=== PATIENT | male | born 1955 | race Caucasian/White ===

== ENCOUNTER 2020-05-05 16:23 | Emergency (ER) | payer MEDICARE, OTHER, SELFPAY ==
--- NOTE | ~2020-05-05 | XR_ITS ---
XR chest 2V DATE: 05/05/2020 16:59 INDICATION: Right-sided chest pain radiating to back. History of hypertension. TECHNIQUE: PA and lateral views COMPARISON: 05/09/2015 2 view chest FINDINGS: Normal heart size. No hilar or mediastinal enlargement. No pulmonary infiltrate or consolid ation, pleural effusion or pulmonary vascular congestion or pneumothorax. IMPRESSION: No active cardiopulmonary disease Reviewed, dictated and finalized at location A.
[2020-05-05 16:26] VITALS: BP 151/98; PULSE 97; RESP 18; TEMP 36.9; O2SAT 96
--- NOTE | 2020-05-05 16:34 | ECG_ITS ---
Measurements Intervals [place] Rate: 89 P: 60 OR: 160 QRS: -41 QRSD: 102 T: 34 QT: 346 QTc: 421 Interpretive Statements SINUS RHYTHM LEFT AXIS DEVIATION DELAYED PRECORDIAL R/S TRANSITION BASELINE ARTIFACT- I, II, III, AVR, AVL, AVF, V5 BORDERLINE ECG Electronically Signed On 05-05-2020 20:14:17 CDT by Charan Phan D.O.
[2020-05-05 16:45] LABS: Basophils Absolute Auto 0.1 K/mm3 (0.0-0.1); Basophils Percent Auto 1.1 % (0.2-1.2); Eosinophils Absolute Auto 0.1 K/mm3 (0-0.3); Eosinophils Percent Auto 1.5 % (0-4.4); Hematocrit 45.3 % (42.0-52.0); Hemoglobin 15.8 g/dL (14.0-18.0); Immature Granulocyte Absolute 0.02 K/mm3 (0.00-0.031); Immature Granulocyte Percent A 0.3 % (0-0.5); Lymphocytes Absolute Auto 1.27 K/mm3 (0.9-3.2); Lymphocytes Percent Auto 17.1 % (18.3-44.2); Mean Corpuscular HGB Conc 34.9 g/dl (32-36); Mean Corpuscular Hemoglobin 32.9 pg (26-34); Mean Corpuscular Volume 94.4 fl (80-100); Monocytes Absolute Auto 0.8 K/mm3 (0.1-0.6); Monocytes Percent Auto 10.5 % (2.6-8.5); Neutrophils Absolute Auto 5.2 K/mm3 (1.3-6.7); Neutrophils Percent Auto 69.5 % (45.5-73.1); Platelet Count Result 230 k/mm3 (150-375); White Blood Count 7.4 K/mm3 (4.5-10.0)
--- NOTE | 2020-05-05 16:46 | ED.WEAKNESS ---
HPI - Weakness General Chief complaint: Weakness Stated complaint: chest pain Time Seen by Provider: 05/05/20 16:31 Source: patient Mode of arrival: ambulatory Limitations: no limitations History of Present Illness HPI Narrative: This is a 64 year old male that presents to the ER for chest pain x 1 week. Reports it started more in his back. Reports over the last 2 days it has started to be more in his chest. Reports current mild discomfort on the right side of the chest. Reports generalized weakness. Reports he has been getting short of breath with exertion. Reports a mild cough. Denies fever. Related Data Home Medications Medication Instructions Recorded Confirmed amlodipine 05/05/20 buspirone mg 05/05/20 ergocalciferol (vitamin D2) 05/05/20 finasteride mg 05/05/20 tamsulosin mg PO 05/05/20 Allergies Allergy/AdvReac Type Severity Reaction Status Date / Time No Known Allergies Allergy Mild Verified 05/05/20 16:30 Review of Systems Review of Systems: Narrative: CONSTITUTIONAL: Denies fever CARDIOVASCULAR: Reports chest pain. Denies edema RESPIRATORY: Reports dyspnea. Denies cough NEUROLOGIC: Reports weakness. All systems reviewed & are unremarkable except as noted in HPI and below PMFSH Past Medical History Medical History (Updated 05/05/20 @ 20:15 by Flory Peralta PA-C) History of BPH History of hypertension Surgical History Surgical History (Updated 05/05/20 @ 16:50 by Flory Peralta PA-C) History of total hip arthroplasty Social History Social History (Updated 05/05/20 @ 16:50 by Flory Peralta PA-C) Smoking status: Never smoker Exam Narrative: Exam Narrative: GENERAL: Well-appearing, well-nourished, and in no acute distress. HEAD: Normocephalic, atraumatic. EYES: EOMI. ENT: Nares clear, no rhinorrhea or epistaxis. Mucous membranes moist. Oropharynx without tonsillar hypertrophy exudate or other lesions. Bilateral TMs pearly eid non-bulging NECK: Supple. No adenopathy or masses. No carotid bruits or JVD CHEST: Clear to auscultation. No respiratory distress. No wheezes rales or rhonchi HEART: Regular rate and rhythm. No murmur heard. Normal peripheral pulses. EXTREMITIES: Normal range of motion. No edema. Strength equal in bilateral upper and lower extremities (5/5) SKIN: Warm, dry, no rash. NEURO: No focal deficits. Alert and oriented x3. CN II-XII grossly intact. PSYCH: Normal mood and affect Course Vital Signs Vital signs: Vital Signs Temperature 98.4 F 05/05/20 16:26 Pulse Rate 97 05/05/20 16:26 Respiratory Rate 18 05/05/20 16:26 Blood Pressure 151/98 H 05/05/20 16:26 Pulse Oximetry 96 05/05/20 16:26 Temperature 98.4 F 05/05/20 16:26 Pulse Rate 95 05/05/20 20:02 Respiratory Rate 22 H 05/05/20 20:02 Blood Pressure 146/93 H 05/05/20 19:39 Pulse Oximetry 97 05/05/20 20:02 MDM - Weakness MDM Narrative Medical decision making narrative: Patient presents to the emergency department for intermittent chest pain, shortness of breath and weakness for the last week. Patient is afebrile and nontoxic-appearing. Vitals are stable. CBC is without acute changes. Metabolic panel without concerning findings. CRP is normal. BNP is not elevated. Chest x-ray without concerning changes. EKG without acute changes. Baseline and 3-hour troponin are negative. UA without concern for urinary tract infection. Heart score is 3. Patient updated on case findings. Has appointment to follow-up with his primary on Friday. He was instructed to follow-up as scheduled. He was given warnings to return to the ER Lab Data Attestation: I reviewed the patient's lab results. Result diagrams: 05/05/20 16:38 05/05/20 16:38 Labs: Lab Results 05/05/20 05/05/20 05/05/20 Range/Units 16:38 16:38 16:38 WBC 7.4 (4.5-10.0) K/mm3 RBC 4.80 (4.6-6.20) M/mm3 Hgb 15.8 (14.0-18.0) g/dL Hct 45.3 (42.0-52.0) % MCV 94.4
[2020-05-05 16:56] LABS: Prothrombin Time 12.7 Seconds (11.1-14.7)
[2020-05-05 16:57] LABS: Partial Thromboplastin Time 24.7 SECONDS (22.3-36.8)
[2020-05-05 16:59] LABS: Alanine Aminotransferase 24 U/L (4-50); Albumin Level 4.3 g/dL (3.5-5.1); Alkaline Phosphatase 102 U/L (38-126); Aspartate Amino Transferase 31 U/L (17-59); Bilirubin,Total 0.3 mg/dL (0.2-1.3); Blood Urea Nitrogen 16 mg/dL (9-20); CRP < 0.5 mg/dL (<1.0); Carbon Dioxide 27 mmol/L (22-30); Chloride 102 mmol/L (98-107); D Dimer 0.35 ug/mL (<0.48); Estimated CRCL calculation 98 ml/min; Estimated Glomerular Filt Rate > 60; Glucose 110 mg/dL (75-110); Sodium 136 mmol/L (137-145)
[2020-05-05] MEDS: ASPIRIN 81 MG CHEWABLE TABLET 324 MG PO (16:59)
[2020-05-05 17:08] LABS: NT Pro B Type Natriuretic Pept 94 PG/ML (5-100); Troponin I < 0.012 ng/mL (0.000-0.034)
[2020-05-05 18:21] VITALS: BP 144/94; PULSE 89; RESP 22; O2SAT 94
[2020-05-05 18:31] LABS: Add Urine Microscopic? NO; Appearance Urine Clear (Clear); Bilirubin Urine Negative (Negative); Blood Urine Negative (Negative); Color Urine Yellow (Yellow); Glucose Urine UA Negative (Negative); Ketones Urine Negative (Negative); Leukocyte Esterase Ur Negative LEU/UL (Negative); Nitrate Urine Negative (Negative); Protein Urine Negative (Negative); Specific Grav Ur 1.025 (1.001-1.035); Urobilinogen Urine Negative mg/dL (<2.0)
[2020-05-05 19:39] VITALS: BP 146/93; PULSE 86; RESP 21; O2SAT 98
[2020-05-05 19:56] LABS: Troponin I < 0.012 ng/mL (0.000-0.034)
[2020-05-05 20:02] VITALS: PULSE 95; RESP 22; O2SAT 97
== END 2020-05-05 20:29 | disposition home or self-care (01) ==
PROVIDERS: Physician Assistant; Emergency Provider Family Medicine; PCP Internal Medicine Geriatric Medicine
DX: R07.9 Chest pain, unspecified (principal); R06.02 Shortness of breath; N40.0 Benign prostatic hyperplasia without lower urinary tract symptoms; I10 Essential (primary) hypertension; R94.31 Abnormal electrocardiogram [ECG] [EKG]
CPT/HCPCS: 36415; 71046; 80053; 81003; 83880; 84484; 85025; 85380; 85610; 85730; 86140; 93005; 99284; A9270

== ENCOUNTER 2021-06-08 09:37 | Outpatient (CLI) | payer MEDICARE, OTHER, SELFPAY ==
--- NOTE | ~2021-06-08 | XR_ITS ---
EXAMINATION: XR ankle RT min 3V INDICATION: Right ankle pain TECHNIQUE: Four views of the right ankle are obtained. COMPARISON: None available FINDINGS: There is no fracture, dislocation, or subluxation. Mild osteoarthritis is noted. There is c alcified atherosclerosis. A plantar calcaneal enthesophyte is noted. 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 IMPRESSION: 1. No acute osseous abnormality. Reviewed, dictated and finalized at location A.
== END 2021-06-08 09:38 | disposition home or self-care (01) ==
PROVIDERS: PCP Internal Medicine Geriatric Medicine; Visit Provider Internal Medicine Geriatric Medicine
DX: M19.071 Primary osteoarthritis, right ankle and foot (principal)
CPT/HCPCS: 73610

== ENCOUNTER 2021-07-28 13:56 | Emergency (ER) | payer MEDICARE, OTHER, SELFPAY ==
[2021-07-28 14:07] VITALS: BP 123/93; PULSE 91; RESP 18; TEMP 36.3; O2SAT 98
--- NOTE | 2021-07-28 14:31 | ED.URI ---
HPI - URI/Sore Throat General Chief Complaint: Upper Respiratory Infection Stated Complaint: Congestion Time Seen by Provider: 07/28/21 14:31 Source: patient Mode of arrival: ambulatory Limitations: no limitations History of Present Illness HPI Narrative: Arie Dexter is a 65 yo male with high blood pressure and prostate problems [facility] complaints of 12 days of sinus gesturing that is gradually improving but his hearing and the ongoing congestion is aggravating him. He has no fever he has no nausea no vomiting Related Data Home Medications Medication Instructions Recorded Confirmed amlodipine 10 mg PO DAILY 05/05/20 07/28/21 buspirone 15 mg PO DAILY 05/05/20 07/28/21 ergocalciferol (vitamin D2) 1,250 mcg PO DAILY 05/05/20 07/28/21 finasteride 5 mg PO DAILY 05/05/20 07/28/21 tamsulosin 0.4 mg PO DAILY 05/05/20 07/28/21 diclofenac sodium 75 mg PO DAILY 07/28/21 07/28/21 Allergies Allergy/AdvReac Type Severity Reaction Status Date / Time No Known Allergies Allergy Mild Verified 07/28/21 14:12 Review of Systems Review of Systems: CONSTITUTIONAL: Denies fever, chills, sweats. EYES: Denies visual changes, redness, discharge. ENT: Has rhinorrhea, has congestion, sore throat, otalgia. CARDIOVASCULAR: Denies chest pain, palpitations, edema. RESPIRATORY: Denies dyspnea, wheezing, cough GASTROINTESTINAL: Denies abdominal pain, nausea, vomiting, diarrhea. GENITOURINARY: Denies dysuria, hematuria, abnormal discharge SKIN: Denies rash or itching. NEUROLOGIC: Denies numbness, or focal weakness. PSYCHIATRIC: Denies anxiety or depression. [facility] Past Medical History Medical History History of BPH History of hypertension Surgical History Surgical History History of total hip arthroplasty Social History Social History (Updated 07/28/21 @ 14:42 by Felecia Ramírez CNP) Smoking status: Never smoker Alcohol intake: never Comments At time of signature, I agree with nursing past medical, surgical, social and family history. There is no relevant family history pertinent to the presenting complaint. Exam Narrative: GENERAL: This is a well-nourished, well-developed patient, in mild distress. HEAD: normocephalic, atraumatic. EYES: Sclera clear/white. Vision is grossly intact. EARS: External ears normal, auditory canals clear and without drainage, TMs normal without perforation. Hearing grossly intact. NOSE: External nose normal without nasal discharge, nares without redness, no rhinorrhea. THROAT: Mucous membranes moist, posterior pharynx mild erythema NECK: Neck supple, non-tender CARDIOVASCULAR: Regular rate and rhythm without murmurs, gallops, or rubs. RESPIRATORY: Clear to auscultation. Breath sounds equal bilaterally. No wheezes, rales, or rhonchi. GASTROINTESTINAL: Abdomen soft, non-tender, SKIN: warm, intact with no suspicious lesions or rash, good texture and turgor. NEURO: awake, alert, and oriented to person, place and time. There were no obvious focal neurologic abnormalities. Steady gait EXTREMITIES: Normal range of motion. BACK: Nontender without deformity Course Course Emergency Course: Patient comes with 12 days of sinus symptoms and while they are improving his hearing is not improving greatly Started on prednisone 40 mg x 5 days and Zyrtec each a.m. Vital Signs Vital signs: Vital Signs Temperature 97.4 F L 07/28/21 14:07 Pulse Rate 91 07/28/21 14:07 Respiratory Rate 18 07/28/21 14:07 Blood Pressure 123/93 H 07/28/21 14:07 Pulse Oximetry 98 07/28/21 14:07 Temperature 97.4 F L 07/28/21 14:07 Pulse Rate 91 07/28/21 14:07 Respiratory Rate 18 07/28/21 14:07 Blood Pressure 123/93 H 07/28/21 14:07 Pulse Oximetry 98 07/28/21 14:07 MDM - URI/Sore Throat Differential Diagnosis Differential diagnosis: Likely upper respiratory infecti
== END 2021-07-28 14:54 | disposition home or self-care (01) ==
PROVIDERS: Emergency Provider Nurse Practitioner
DX: J01.10 Acute frontal sinusitis, unspecified (principal)
CPT/HCPCS: 99213; G0463

== ENCOUNTER 2022-08-10 15:45 | Emergency (ER) | payer MEDICARE, OTHER, SELFPAY ==
[2022-08-10 15:56] VITALS: BP 132/86; PULSE 99; RESP 16; TEMP 36.7; O2SAT 97
[2022-08-10 15:58] VITALS: BP 132/86; PULSE 99; RESP 16; TEMP 36.7; O2SAT 97
--- NOTE | 2022-08-10 16:31 | ED.GENADULT ---
HPI - General Adult General Chief complaint: Ear Stated complaint: ear inf Source: patient Mode of arrival: ambulatory Limitations: no limitations History of Present Illness HPI narrative: Patient presents for evaluation of right ear pain for the last 2 days. He states he is hard of hearing at baseline. Reports of 2 days. Reports some pain in the right TMJ but denies dental pain. He states he had similar symptoms in the past and was given an eardrop to use. He denies any fever, chills, sore throat, respiratory symptoms. No recent sick contacts to his knowledge. He has not been swimming recently. No additional complaints or concerns Related Data Home Medications Medication Instructions Recorded Confirmed amlodipine 10 mg tablet 10 mg PO DAILY 05/05/20 08/10/22 buspirone 15 mg tablet 15 mg PO DAILY 05/05/20 08/10/22 ergocalciferol (vitamin D2) 1,250 1,250 mcg PO DAILY 05/05/20 08/10/22 mcg (50,000 unit) capsule finasteride 5 mg tablet 5 mg PO DAILY 05/05/20 08/10/22 tamsulosin 0.4 mg capsule 0.4 mg PO DAILY 05/05/20 08/10/22 diclofenac sodium 75 mg 75 mg PO DAILY 07/28/21 08/10/22 tablet,delayed release Allergies Allergy/AdvReac Type Severity Reaction Status Date / Time No Known Allergies Allergy Mild Verified 08/10/22 15:57 Review of Systems Review of Systems: CONSTITUTIONAL: Denies fever, chills, or sweats. EYES: Denies visual changes, redness, or discharge. ENT: Reports right ear pain and decreased hearing from his baseline. Denies any drainage from the ear. Denies sore throat. CARDIOVASCULAR: Denies chest pain, palpitations, or edema. RESPIRATORY: Denies cough or dyspnea. GASTROINTESTINAL: Denies abdominal pain, nausea, vomiting, or diarrhea. GENITOURINARY: Denies dysuria or hematuria. SKIN: Denies rash or itching. MUSCULOSKELETAL: Denies back pain, joint pain, or myalgia. NEUROLOGIC: Denies headache, numbness, dizziness, or weakness. PSYCHIATRIC: Denies anxiety or depression. [facility] Past Medical History Medical History History of BPH History of hypertension Surgical History Surgical History History of total hip arthroplasty Family History Family History Mother Family history non-contributory Social History Social History Smoking status: Never smoker Alcohol intake: current Alcohol use details: Social Substance use: never Living arrangements: with family Gender identity (if verbalized by the patient): Male Sexual Orientation (if Verbalized by the Patient): Straight or Heterosexual Spiritual care concerns: No Exam Narrative: GENERAL: Well-appearing, well-nourished, and in no acute distress. HEAD: Normocephalic, atraumatic. EYES: PERRLA and EOMI. ENT: Nares clear, no rhinorrhea or epistaxis. Mucous membranes moist. Oropharynx without tonsillar hypertrophy exudate or other lesions. Left tympanic membrane erythema. Right ear canal is edematous. I am unable to fully visualize the tympanic membrane on the right NECK: Supple. No adenopathy or masses. No carotid bruits or JVD CHEST: Clear to auscultation. No respiratory distress. No wheezes rales or rhonchi HEART: Regular rate and rhythm. No murmur heard. Normal peripheral pulses. ABDOMEN: Soft, nontender, nondistended, normal active bowel sounds. EXTREMITIES: Normal range of motion. No edema. SKIN: Warm, dry, no rash. NEURO: No focal deficits. Alert and oriented x3. PSYCH: Normal mood and affect. Course Course Emergency Course: This is a 66-year-old male who presented for evaluation of right-sided ear pain with decreased hearing. He has evidence of otitis externa. However I cannot definitively exclude otitis media as I cannot fully visualize his tympanic membrane. We will co
== END 2022-08-10 16:31 | disposition home or self-care (01) ==
PROVIDERS: Emergency Provider Nurse Practitioner; PCP Internal Medicine Geriatric Medicine
DX: H60.91 Unspecified otitis externa, right ear (principal); H66.91 Otitis media, unspecified, right ear; N40.0 Benign prostatic hyperplasia without lower urinary tract symptoms; I10 Essential (primary) hypertension
CPT/HCPCS: 99213; G0463

== ENCOUNTER 2023-05-14 15:17 | Emergency (ER) | payer MEDICARE, OTHER, SELFPAY ==
[2023-05-14 15:27] VITALS: BP 141/83; PULSE 96; RESP 16; TEMP 37.2; O2SAT 99
[2023-05-14 15:28] VITALS: BP 141/83; PULSE 96; RESP 16; TEMP 37.2; O2SAT 99
--- NOTE | 2023-05-14 15:44 | ED.SKABFB ---
HPI - Skin/Abscess/Foreign Bdy General Chief complaint: Skin/Abscess/Foreign Body Stated complaint: Insect Bite Time Seen by Provider: 05/14/23 15:36 Source: patient and RN notes reviewed Mode of arrival: ambulatory Limitations: no limitations History of Present Illness HPI narrative: Patient presents today complaining of an insect bite to his right lateral thigh that was sustained yesterday. He did not notice the insect that bit him. He has noticed some redness and itching developed. He has tried no [id number] treatment prior to arrival. Related Data Home Medications Medication Instructions Recorded Confirmed amlodipine 10 mg tablet 10 mg PO DAILY 05/05/20 05/14/23 buspirone 15 mg tablet 15 mg PO DAILY 05/05/20 05/14/23 ergocalciferol (vitamin D2) 1,250 1,250 mcg PO DAILY 05/05/20 05/14/23 mcg (50,000 unit) capsule finasteride 5 mg tablet 5 mg PO DAILY 05/05/20 05/14/23 tamsulosin 0.4 mg capsule 0.4 mg PO DAILY 05/05/20 05/14/23 Allergies Allergy/AdvReac Type Severity Reaction Status Date / Time No Known Allergies Allergy Mild Verified 08/10/22 15:57 Review of Systems Review of Systems: CONSTITUTIONAL: Denies body aches, fever, chills, or sweats. EYES: Denies visual changes, redness, or discharge. ENT: Denies rhinorrhea, congestion, sore throat, or otalgia. CARDIOVASCULAR: Denies chest pain, palpitations, or edema. RESPIRATORY: Denies cough or dyspnea. GASTROINTESTINAL: Denies abdominal pain, nausea, vomiting, or diarrhea. GENITOURINARY: Denies dysuria or hematuria. SKIN: Denies rash. + Insect bite to right thigh MUSCULOSKELETAL: Denies back pain, joint pain, or myalgia. NEUROLOGIC: Denies headache, numbness, tingling, or weakness. PSYCH: Denies depression or anxiety. [facility] Past Medical History Medical History History of BPH History of hypertension Surgical History Surgical History History of total hip arthroplasty Family History Family History Mother Family history non-contributory Social History Social History Smoking status: Never smoker Alcohol intake: current Alcohol use details: Social Substance use: never Living arrangements: with family Gender identity (if verbalized by the patient): Male Sexual Orientation (if Verbalized by the Patient): Straight or Heterosexual Spiritual care concerns: No Comments At time of signature, I have reviewed and agree with nursing past medical, surgical, social and family history unless otherwise noted. Please see nursing chart for further information. There is no relevant family history pertinent to the presenting complaint Exam Narrative: GENERAL: Well-appearing, well-nourished, and in no acute distress. HEAD: Normocephalic, atraumatic. EYES: EOMI. No redness or drainage. Conjunctivae normal. ENT: Mucous membranes pink and moist. NECK: Normal AROM. CHEST: No respiratory distress. EXTREMITIES: Normal range of motion. No edema. SKIN: Warm, dry, no rash. Capillary refill normal. Normal skin turgor.1.5 cm round area of erythema with small pustule in the center to the right thigh with 6 x 3 cm area non blanchable petechiae extending laterally from the pustule. This area is nontender to palpation. No edema, induration, fluctuance, or drainage noted. NEURO: No focal deficits. Alert and oriented x3. Gait steady. PSYCH: Normal affect. No signs of depression or anxiety. Course Course Level of Care: Express Care Visit Vital Signs Vital signs: Vital Signs Temperature 99.0 F 05/14/23 15:27 Pulse Rate 96 05/14/23 15:27 Respiratory Rate 16 05/14/23 15:27 Blood Pressure 141/83 H 05/14/23 15:27 Pulse Oximetry 99 05/14/23 15:27 Oxygen Delivery Room Air
== END 2023-05-14 15:53 | disposition home or self-care (01) ==
PROVIDERS: Emergency Provider Nurse Practitioner; PCP Internal Medicine Geriatric Medicine
DX: S70.361A Insect bite (nonvenomous), right thigh, initial encounter (principal); L08.9 Local infection of the skin and subcutaneous tissue, unspecified; W57.XXXA Bitten or stung by nonvenomous insect and other nonvenomous arthropods, initial encounter; I10 Essential (primary) hypertension; N40.0 Benign prostatic hyperplasia without lower urinary tract symptoms
CPT/HCPCS: 99213; G0463

== ENCOUNTER 2025-09-30 13:37 | Emergency (ER) | payer MEDICARE, OTHER, SELFPAY ==
--- NOTE | ~2025-09-30 | XR_ITS ---
Examination: XR chest 2V Clinical History: cp Comparison: 05/05/2020 Technique: PA and Lateral Findings: Cardiomediastinal silhouette normal size and configuration. Lungs clear. No acute bony abnormality. Chronic fracture right rib 9. IMPRESSION: 1. No acute cardiopulmonary findings. Reviewed, dictated and finalized at location R. PTION SPECIALIST
--- NOTE | 2025-09-30 13:38 | ECG_ITS ---
Test Date: 2025-09-30 13:42:14 Measurements Intervals [place] Rate: 82 P: 62 MD: 175 QRS: -41 QRSD: 94 T: 29 QT: 353 QTc: 414 Interpretive Statements SINUS RHYTHM LEFT AXIS DEVIATION [QRS AXIS < -30] PATTERN CONSISTENT WITH PULMONARY DISEASE No previous ECG available for comparison Electronically Signed On 09-30-2025 19:06:25 PACKAGE HANDLER by Cherelle Cabrera M.D.
--- OUTSIDE RECORDS SUMMARY | 2025-09-30 13:40 | XMS_ITS | Clinical Summary ---
Author Organization [facility] Address [address] [place] [address] Care Team Providers Care Disk Operator Name Role Phone Edil Garcia MD Primary Care Provider [phone] Source Comments [facility],non-owned Affiliates and Associated Physician Practices is amultiple site organization consisting of ambulatory clinics and hospital sitesin [place], [place], [place] and [place]. This disclosure is being madepursuant to the Care Everywhere program and may not contain all information available regarding this patient. Last updated 18.[facility] Allergies No known active allergies Medications * Be aware that medications may not be up to date on this document. Alwaysverify current medications with the patient. tamsulosin (FLOMAX) 0.4 MG capsule Take 0.4 mg by mouth once daily Take 30 minutes after a meal at the same time each day. Active finasteride (PROSCAR) 5 MG tablet Take 5 mg by mouth once daily Active busPIRone (BUSPAR) 7.5 MG tablet Take 7.5 mg by mouth once daily Active HYDROcodone-imko taminophen (NORCO) 10-325 MG tablet Take 0.5-1 tablets by mouth every 6 hours as needed Earliest Fill Date: 09/11/17 90 tablet 7 Active Additional Information Patient not taking.Reported on 03/04/2018 amLODIPine (NORVASC) 10 MG tablet Take 1 tablet by mouth once daily 7 Active senna-docusate (SENOKOT-S) 8.6-50 MG tablet Take 1 tablet by mouth 2 times daily 7 Active Additional Information Patient not taking.Reported on 09/18/2020 thiamine 100 MG Take 1 tablet by mouth once daily 7 Active Additional Information Patient not taking.Reported on 09/18/2020 chlordiazePOXID E (LIBRIUM) 25 MG capsule Take 1 capsule by mouth 4 times daily as needed for Anxiety or Agitation 20 capsule 7 Active Additional Information Patient not taking.Reported on 09/18/2020 busPIRone (BUSPAR) 15 MG tablet 0 Active vitamin D, ergocalciferol, (DRISDOL) 1.25 MG (34925 UT) capsule 0 Active Active Problems Problem Noted Date Diagnosed Date s/p orthopedic surgery, follow-up exam 09-08-17 09/23/2017 S/P orthopedic surgery, follow-up exam 7 Primary osteoarthritis of right hip 09/08/2017 Social History Tobacco Use Types Packs/Day Years Used Date Smoking Tobacco: Never Smokeless Tobacco: Never Tobacco Cessation:Counseling Given: No Alcohol Use Standard Drinks/Week Comments Yes 14 (1 standard drink = 0.6 oz pu re alcohol) socail Sex and Gender Information Value Date Recorded Sex Assigned at Not on file Legal Sex Male 2:26 PM CDT Gender Identity Male 07/07/2017 9:11 AM CDT Sexual Orientation Not on file Last Filed Vital Signs Vital Sign Reading Time Taken Comments Blood Pressure 106/58 09/11/2017 10:10 AM CDT si tting. Pulse 99 09/11/2017 10:10 AM CDT at r est. 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 APPRENTICE Plan of Treatment Health Maintenance Due Date Last Done Comments COLOGUARD (AGES 45-75) - COL ON CA SCREENING 1953 CT COLONOGRAPHY - COLON CA SCREENING 1955 FIT - COLON CA SCREENING 1955 FLEX SIG - COLON CA SCREENING 1953 LIPID TESTING 1953 HEPATITIS C SCREENING 10/28/1971 DTAP/TDAP/TD VACCINES (1 - Tdap) 1972 PNEUMOCOCCAL VACCINE 50+ (1 of 1 - PCV) 2003 ZOSTER VACCINE (1 of 2) 2003 DEPRESSION SCREENING 11/10/2024 MEDICARE AWV CALENDAR YEAR 2024 COVID-19 VACCINE (1 - 2024-2 6 season) 2025 INFLUENZA VACCINE (#1) 2025 Respiratory Syncytial Virus (RSV) Vaccine Pt: or over 60 yrs (1 - 1-dose 75+ series) 2028 COLON MONITORING 07/20/2029 07/20/2019 COLONOSCOPY - COLON CA SCREENING 07/20/2029 07/20/20 19 Colorectal Cancer Screening 07/20/2029 HEPATITIS B VACCINE Aged Out No longe r eligible based on patient's age to complete this topic HIB VACCINE Aged Out No longer eligi ble based on patient's age to complete this topic HPV VACCINE Aged Out No longer eligi ble based on patient's age to complete this topic MENINGOCOCCAL (Group B) VACC INE SHARED DECISION-MAKING Aged Out No longer eligibl e based on patient's age to complete this topic MENINGOCOCCAL GROUPS A/C/Y/W VACCINE Aged Out No longer eligible b ased on patient's age to complete this topic Medical Devices Implanted Type Area Icu Nurse Device Identifier Shelf Expiration Date Model / Serial / Lot Shell Actb 62mm Hip Lmt Hl Ti Por Implanted:Qty: 1 on 09/08/2017 by Pauline Recinos MD at [facility] Right: Hip [employer] 06/10/2023 [id number] / / [id number] Screw 6.5mm 30mm Dome Hip Actb Canc Implanted:Qty: 1 on 09/08/2017 by Pauline Recinos MD at [facility] Right: Hip [employer] 03/19/2027 [id number] / / [id number] Acetabular Liner 36mm Hd 25 Liner Sz Implanted:Qty: 1 on 09/08/2017 by Pauline Recinos MD at [facility] Right: Hip [employer] [id number] / / [id number] Std Femoral Stem Sz 13 Implanted:Qty: 1 on 09/08/2017 by Pauline Recinos MD at [facility] Right: Hip 07/14/2027 [id number] / / [id number] Head Fem -3mm Ofst 36mm Hip Ty 1 Cocr G7 Implanted:Qty: 1 on 09/08/2017 by Pauline Recinos MD at [facility] Right: Hip [employer] 08/19/2027 [id number] / / [id number] Insurance [employer] MEDICARE ADV [facility] Advance Directives * Full Code (Latest Code Status on File) Date Activated Date Inactivated Comments 09/08/2017 4:38 PM 09/11/2017 2:10 PM Care Teams Disk Operator Relationship Specialty [place] [id number] [place] [id number] PCP - General Internal Medicine 06/05/17
[2025-09-30] MEDS: ASPIRIN 81 MG CHEWABLE TABLET 324 MG PO (13:44)
--- NOTE | 2025-09-30 13:51 | ED_ITS ---
HPI - Recheck/Abnormal Lab/Rx General Chief Complaint: Recheck/Abnormal Lab/Rx <Claudia Cook APRN - Last Filed: 09/30/25 13:53> Stated Complaint: BP 160/90 <Claudia Cook APRN - Last Filed: 09/30/25 13:53> Time Seen by Provider: 09/30/25 13:51 <Claudia Cook APRN - Last Filed: 09/30/25 13:53> Focused HPI: Patient is a 69-year-old male who presents to the ER with chest pain. He reports his chest pain started earlier today. Patient reports last week he went to the dentist and they told him his blood pressure was elevated to 150s over 90s. He reports he purchased a home blood pressure cuff and it has been reading in the 160s. Patient reports he has an upcoming appointment on Friday with his primary care provider. He endorses a history of high blood pressure and takes amlodipine. Patient also endorses a history of sleep apnea. He denies any lower extremity swelling, recent fevers, abdominal pain or acute back pain. GENERAL: Well-appearing, well-nourished, and in no acute distress. HEAD: Normocephalic, atraumatic. CHEST: Clear to auscultation. ?No respiratory distress. HEART: Regular rate and rhythm.? NEURO: ?Alert and oriented x3. Patient screened in triage and initial orders placed.? ?Additional care and disposition to be based upon?diagnostic testing and treatment. <Claudia Cook APRN - Last Filed: 09/30/25 13:53> History of Present Illness HPI narrative: Patient is a 69-year-old male who presents ER with concerns for elevated blood pressures have been occurring during the week. He takes amlodipine. Blood pressures been as high as 180 but is usually in the 150s. Reports those week he is walking and he coughed and developed some chest discomfort. He has continued to have discomfort when he is coughing but not necessarily with exertion. No diaphoresis. No radiation. No history of cardiac disease. Has follow-up in 1 week with his PCP. <Amaury Hill MD - Last Filed: 09/30/25 17:58> Related Data Home Medications: Home Medications ?Medication ?Instructions ?Recorded ?Confirmed ?Last Taken ?Type amlodipine 10 mg tablet 10 mg PO DAILY 05/05/2004/01 Unknown History buspirone 15 mg tablet 15 mg PO DAILY 05/05/2004/01 Unknown History ergocalciferol (vitamin D2) 1,250 1,250 mcg PO DAILY 0 05/05/20 05/14/23 Unknown History mcg (50,000 unit) capsule finasteride 5 mg tablet 5 mg PO DAILY 05/05/2005/14 Unknown History tamsulosin 0.4 mg capsule 0.4 mg PO DAILY 05/05/2004/01 Unknown History <Claudia Cook APRN - Last Filed: 09/30/25 13:53> Allergies/Adverse Reactions: Allergies Allergy/AdvReac Type Severity Reaction Status Date / Time No Known Allergies Allergy Mild Verified 09/30/25 14:59 <Claudia Cook APRN - Last Filed: 09/30/25 13:53> Review of Systems 2 Review of Systems: All systems reviewed & are unremarkable except as noted in HPI and below <Amaury Hill MD - Last Filed: 09/30/25 17:58> Constitutional: Constitutional: Reports no additional constitutional complaints <Amaury Hill MD - Last Filed: 09/30/25 17:58> ENT: Reports system reviewed and no additional complaints, except as documented <Amaury Hill MD - Last Filed: 09/30/25 17:58> Cardiovascular: Cardiovascular: Reports no additional cardiovascular complaints <Amaury Hill MD - Last Filed: 09/30/25 17:58> Respiratory: Respiratory: Reports no additional respiratory complaints < Amaury Hill MD - Last Filed: 09/30/25 17:58> [facility] Past Medical History Medical History: Medical History History of BPH History of hypertension <Claudia Cook APRN - Last Filed: 09/30/25 13:53> Surgical History Surgical History: Surgical History History of total hip arthroplasty <Claudia Cook APRN - Last Filed: 09/30/25 13:53> Family History Family History: Family History Mother Family history non-contributory <Claudia Cook APRN - Last Filed: 09/30/25 13:53> Social History Social History: Social History Smoking status: Never smoker Alcohol intake: current Alcohol use details: Social Substance use: never Living arrangements: with family Gender identity (if verbalized by the patient): Male Sexual Orientation (if Verbalized by the Patient): Straight or Heterosexual Spiritual care concerns: No <Claudia Cook APRN - Last Filed: 09/30/25 13:53> Exam 2 Narrative: GENERAL: Well-appearing, well-nourished, and in no acute distress. HEAD: Normocephalic, atraumatic. ENT: Mucous membranes moist. CHEST: Clear to auscultation. No respiratory distress. HEART: Regular rate and rhythm. Normal peripheral pulses. ABDOMEN: Soft, nontender, nondistended. EXTREMITIES: Normal range of motion. No edema. SKIN: Warm, dry, no rash. NEURO: Alert and oriented x3. PSYCH: Normal mood and affect. <Amaury Hill MD - Last Filed: 09/30/25 17:58> Course Course Emergency Course: Patient resting comfortably. Troponin negative. Suspect pleurisy or musculoskeletal chest pain. Discussed he can follow-up with his PCP and obtain outpatient stress test if required and he does not improve with ibuprofen/Tylenol. Also will start on low-dose HCTZ. <Amaury Hill MD - Last Filed: 09/30/25 17:58> Vital Signs Vital signs: Vital Signs Temperature 97.7 F 09/30/25 14:55 Pulse Rate 75 09/30/25 14:55 Respiratory Rate 13 09/30/25 14:55 Blood Pressure 153/91 H 09/30/25 14:55 Pulse Oximetry 97 09/30/25 14:55 Oxygen Delivery Room Air 09/30/25 14:55 Temperature 97.8 F 09/30/25 16:05 Pulse Rate 79 09/30/25 16:05 Respiratory Rate 16 09/30/25 16:05 Blood Pressure 135/90 09/30/25 16:05 Pulse Oximetry 96 09/30/25 16:05 Oxygen Delivery Room Air 09/30/25 14:55 <Claudia Cook, LEARNING DESIGN SPECIALIST - Last Filed: 09/30/25 13:53> Vital Signs Temperature 97.7 F 09/30/25 14:55 Pulse Rate 75 09/30/25 14:55 Respiratory Rate 13 09/30/25 14:55 Blood Pressure 153/91 H 09/30/25 14:55 Pulse Oximetry 97 09/30/25 14:55 Oxygen Delivery Room Air 09/30/25 14:55 Temperature 97.8 F 09/30/25 16:05 Pulse Rate 79 09/30/25 16:05 Respiratory Rate 16 09/30/25 16:05 Blood Pressure 135/90 09/30/25 16:05 Pulse Oximetry 96 09/30/25 16:05 Oxygen Delivery Room Air 09/30/25 14:55 <Amaury Hill MD - Last Filed: 09/30/25 17:58> MDM - Recheck/Abnormal Lab/Rx Differential Diagnosis Differential diagnosis: Likely other (Acute coronary syndrome, STEMI, pneumonia, musculoskeletal chest pain, pleurisy, hypertension) <Amaury Hill MD - Last Filed: 09/30/25 17:58> Lab Data Attestation: I reviewed the patient's lab results. <Amaury Hill MD - Last Filed: 09/30/25 17:58> Result diagrams: 09/30/25 13:44 09/30/25 13:44 <Claudia Cook, LEARNING DESIGN SPECIALIST - Last Filed: 09/30/25 13:53> Labs: Lab Results 09/30/25 Range/Units 13:44 WBC 6.3 (4.5-10.0) K/mm3 RBC 4.86 (4.6-6.20) M/mm3 Hgb 16.1 (14.0-18.0) g/dL Hct 47.2 (42.0-52.0) % MCV 97.1 (80-100) fl MCH 33.1 (26-34) pg MCHC 34.1 (32-36) g/dl RDW 12.8 (11.5-14.5) % Plt Count 274 (150-375) k/mm3 MPV 9.0 (7.4-10.4) fl Immature Gran % (Auto) 0.5 (0-0.5) % Neut % (Auto) 58.1 (45.5-73.1) % Lymph % (Auto) 23.8 (18.3-44.2) % Mccormick % (Auto) 11.9 H (2.6-8.5) % Eos % (Auto) 4.6 H (0-4.4) % Baso % (Auto) 1.1 (0.2-1.2) % Lymph # (Auto) 1.50 (0.9-3.2) K/mm3 Mccormick # (Auto) 0.8 H (0.1-0.6) K/mm3 Eos # (Auto) 0.3 (0-0.3) K/mm3 Baso # (Auto) 0.1 (0.0-0.1) K/mm3 Abs Immat Gran (auto) 0.03 (0.00-0.031) K/mm3 Absolute Neuts (auto) 3.7 (1.3-6.7) K/mm3 Absolute Nucleated RBC 0.000 (0.0-0.012) K/mm3 Nucleated RBC % 0.0 (0.0-0.2) % PT 13.1 (11.1-14.7) Seconds INR 1.0 APTT 27.2 (22.3-36.8) Seconds Sodium 136 L (137-145) mmol/L Potassium 3.6 (3.4-5.0) mmol/L Chloride 99 (98-107) mmol/L Carbon Dioxide 30 (22-30) mmol/L Anion Gap 7 (4-12) mmol/L BUN 9 D (9-20) mg/dL Creatinine 0.68 L (0.7-1.3) mg/dL Estim Creat Clear Calc Not Reportable Estimated GFR > 60 (59 - ) Glucose 95 (65-110) mg/dL Calcium 9.3 (8.4-10.2) mg/dL Total Bilirubin 0.5 (0.2-1.3) mg/dL AST 37 (17-59) U/L ALT 31 (6-50) U/L Alkaline Phosphatase 105 (38-126) U/L Troponin I < 0.012 (0.000-0.034) ng/mL Total Protein 8.1 (6.3-8.2) g/dL Albumin 4.4 (3.5-5.1) g/dL Lipase 149 (23-300) U/L <Claudia Cook, LEARNING DESIGN SPECIALIST - Last Filed: 09/30/25 13:53> Lab Results 09/30/25 Range/Units 13:44 WBC 6.3 (4.5-10.0) K/mm3 RBC 4.86 (4.6-6.20) M/mm3 Hgb 16.1 (14.0-18.0) g/dL Hct 47.2 (42.0-52.0) % MCV 97.1 (80-100) fl MCH 33.1 (26-34) pg MCHC 34.1 (32-36) g/dl RDW 12.8 (11.5-14.5) % Plt Count 274 (150-375) k/mm3 MPV 9.0 (7.4-10.4) fl Immature Gran % (Auto) 0.5 (0-0.5) % Neut % (Auto) 58.1 (45.5-73.1) % Lymph % (Auto) 23.8 (18.3-44.2) % Mccormick % (Auto) 11.9 H (2.6-8.5) % Eos % (Auto) 4.6 H (0-4.4) % Baso % (Auto) 1.1 (0.2-1.2) % Lymph # (Auto) 1.50 (0.9-3.2) K/mm3 Mccormick # (Auto) 0.8 H (0.1-0.6) K/mm3 Eos # (Auto) 0.3 (0-0.3) K/mm3 Baso # (Auto) 0.1 (0.0-0.1) K/mm3 Abs Immat Gran (auto) 0.03 (0.00-0.031) K/mm3 Absolute Neuts (auto) 3.7 (1.3-6.7) K/mm3 Absolute Nucleated RBC 0.000 (0.0-0.012) K/mm3 Nucleated RBC % 0.0 (0.0-0.2) % PT 13.1 (11.1-14.7) Seconds INR 1.0 APTT 27.2 (22.3-36.8) Seconds Sodium 136 L (137-145) mmol/L Potassium 3.6 (3.4-5.0) mmol/L Chloride 99 (98-107) mmol/L Carbon Dioxide 30 (22-30) mmol/L Anion Gap 7 (4-12) mmol/L BUN 9 D (9-20) mg/dL Creatinine 0.68 L (0.7-1.3) mg/dL Estim Creat Clear Calc Not Reportable Estimated GFR > 60 (59 - ) Glucose 95 (65-110) mg/dL Calcium 9.3 (8.4-10.2) mg/dL Total Bilirubin 0.5 (0.2-1.3) mg/dL AST 37 (17-59) U/L ALT 31 (6-50) U/L Alkaline Phosphatase 105 (38-126) U/L Troponin I < 0.012 (0.000-0.034) ng/mL Total Protein 8.1 (6.3-8.2) g/dL Albumin 4.4 (3.5-5.1) g/dL Lipase 149 (23-300) U/L <Amaury Hill MD - Last Filed: 09/30/25 17:58> Imaging Data Radiologist's impression: ITS Impressions Chest X-Ray 09/30/25 14:20 IMPRESSION: 1. No acute cardiopulmonary findings. <Amaury Hill MD - Last Filed: 09/30/25 17:58> ECG Data EKG #1: ECG completion date: 09/30/25 <Amaury Hill MD - Last Filed: 09/30/25 17:58> ECG completion time: 13:42 <Amaury Hill MD - Last Filed: 09/30/25 17:58> EKG Interpretation: normal rate (82), sinus rhythm, no ST changes, normal QRS, normal QT and left axis <Amaury Hill MD - Last Filed: 09/30/25 17:58> Discharge Plan Discharge Clinical Impression: Elevated blood pressure reading, Cough, Chest pain <Claudia Cook APRN - Last Filed: 09/30/25 13:53> Patient Disposition: Home <Claudia Cook APRN - Last Filed: 09/30/25 13:53> Condition: Stable <Claudia Cook APRN - Last Filed: 09/30/25 13:53> Instructions: Chest Pain (ED), Hypertension (ED) <Claudia Cook APRN - Last Filed: 09/30/25 13:53> Additional Instructions: Please return to the emergency department if you develop severe and persistent chest pain, difficulty breathing, dizziness, leg swelling or if you are coughing up blood as these can be signs of a medical emergency. Please call your doctor for a follow up appointment to determine the need for further testing. <Claudia Cook APRN - Last Filed: 09/30/25 13:53> Patient Language: Bengali <Claudia Cook APRN - Last Filed: 09/30/25 13:53> Prescriptions: New hydrochlorothiazide 12.5 mg tablet 12.5 mg PO DAILY Qty: 7 0RF No Action cephalexin 500 mg capsule 500 mg PO Q6H 5 Days Qty: 20 0RF tamsulosin 0.4 mg capsule 0.4 mg PO DAILY amlodipine 10 mg tablet 10 mg PO DAILY ergocalciferol (vitamin D2) 1,250 mcg (50,000 unit) capsule 1,250 mcg PO DAILY finasteride 5 mg tablet 5 mg PO DAILY buspirone 15 mg tablet 15 mg PO DAILY <Claudia Cook APRN - Last Filed: 09/30/25 13:53> Follow-up/Referrals: Ginger Blue,Edil Regalado MD [Primary Care Provider, Unknown] - 1 Week <Claudia Cook APRN - Last Filed: 09/30/25 13:53> Quality HEART score for chest pain patients History: slightly suspicious <Amaury Hill MD - Last Filed: 09/30/25 17:58> ECG: normal <Amaury Hill MD - Last Filed: 09/30/25 17:58> Age: > or = to 65 years <Amaury Hill MD - Last Filed: 09/30/25 17:58> Risk factors: 1 or 2 risk factors <Amaury Hill MD - Last Filed: 09/30/25 17:58> Troponin: < or = to 1x normal limit <Amaury Hill MD - Last Filed: 09/30/25 17:58> Heart score: 3 <Amaury Hill MD - Last Filed: 09/30/25 17:58>
[2025-09-30 14:07] LABS: Hematocrit 47.2 % (42.0-52.0); Hemoglobin 16.1 g/dL (14.0-18.0); Immature Granulocyte Percent A 0.5 % (0-0.5); Lymphocytes Absolute Auto 1.50 K/mm3 (0.9-3.2); Mean Corpuscular HGB Conc 34.1 g/dl (32-36); Mean Corpuscular Hemoglobin 33.1 pg (26-34); Mean Corpuscular Volume 97.1 fl (80-100); Nucleated Red Blood Cells Absolute Auto 0.000 K/mm3 (0.0-0.012); Nucleated Red Blood Cells Perc 0.0 % (0.0-0.2); Platelet Count Result 274 k/mm3 (150-375); Red Blood Count 4.86 M/mm3 (4.6-6.20); White Blood Count 6.3 K/mm3 (4.5-10.0)
[2025-09-30 14:18] LABS: INR 1.0; Partial Thromboplastin Time 27.2 Seconds (22.3-36.8); Prothrombin Time 13.1 Seconds (11.1-14.7)
[2025-09-30 14:21] LABS: Alanine Aminotransferase 31 U/L (6-50); Albumin Level 4.4 g/dL (3.5-5.1); Alkaline Phosphatase 105 U/L (38-126); Anion Gap 7 mmol/L (4-12); Aspartate Amino Transferase 37 U/L (17-59); Bilirubin,Total 0.5 mg/dL (0.2-1.3); Blood Urea Nitrogen 9 mg/dL (9-20); Calcium 9.3 mg/dL (8.4-10.2); Carbon Dioxide 30 mmol/L (22-30); Chloride 99 mmol/L (98-107); Estimated Glomerular Filt Rate > 60; Glucose 95 mg/dL (65-110); Lipase 149 U/L (23-300); Potassium 3.6 mmol/L (3.4-5.0); Sodium 136 mmol/L (137-145); Total Protein 8.1 g/dL (6.3-8.2)
[2025-09-30 14:28] LABS: Troponin I < 0.012 ng/mL (0.000-0.034)
[2025-09-30 14:55] VITALS: BP 153/91; PULSE 75; RESP 13; TEMP 36.5; O2SAT 97
--- OUTSIDE RECORDS SUMMARY | 2025-09-30 15:55 | XMS_ITS | Clinical Summary ---
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 This disclosure is being madepursuant to the Care Everywhere program and may not contain all information available regarding this patient. Last updated 18.[employer] [facility] Allergies No known active allergies Medications * [...] 7.5 mg by mouth once daily Active HYDROcodone-miko taminophen (NORCO) 10-325 MG tablet Take 0.5-1 [...] Active vitamin D, ergocalciferol, (DRISDOL) 1.25 MG (53550 UT) capsule 0 Active Active Problems Problem [...] 78 kg (172 lb) 12/01/2019 1:53 PM FACSIMILE OPERATOR Height 180.3 cm (5' 11) 12/01/2019 1:53 PM FACSIMILE OPERATOR Body Mass Index 23.99 12/01/2019 1:53 PM FACSIMILE OPERATOR Plan of Treatment Health Maintenance Due Date [...] this topic Medical Devices Implanted Type Area Music Producer Device Identifier Shelf Expiration Date Model / Serial / Lot Shell Actb 62mm Hip Lmt Hl Ti Por Implanted:Qty: 1 on 09/08/2017 by Pauline Recinos MD at [facility] Right: Hip [employer] 06/10/2023 [id number] / / [id number] Screw 6.5mm 30mm Dome Hip Actb Canc Implanted:Qty: 1 on 09/08/2017 by Pauline Recinos MD at [facility] Right: Hip [employer] 03/19/2027 [id number] / / [id number] Acetabular Liner 36mm Hd 25 Liner Sz Implanted:Qty: 1 on 09/08/2017 by Pauline Recinos MD at [facility] Right: Hip [employer] Inh[employer] [id number] / / [id number] Std Femoral Stem Sz 13 Implanted:Qty: 1 on 09/08/2017 by Pauline Recinos MD at [facility] Right: Hip 07/14/2027 [id number] / / [id number] Head Fem -3mm Ofst 36mm Hip Ty 1 Cocr G7 Implanted:Qty: 1 on 09/08/2017 by Pauline Recinos MD at [facility] Right: Hip [employer] 08/19/2027 [id number] / / [id number] Insurance [employer] MEDICARE ADV [facility] Advance Directives * Full Code (Latest Code Status on File) Date Activated Date Inactivated Comments 09/08/2017 4:38 PM 09/11/2017 2:10 PM Care Teams Assembling Motor Builder Relationship Specialty [place] [id number] [place] [id number] PCP - General Internal Medicine 06/05/17
[2025-09-30 16:05] VITALS: BP 135/90; PULSE 79; RESP 16; TEMP 36.6; O2SAT 96
== END 2025-09-30 15:56 | disposition home or self-care (01) ==
LOC: ANHED 15:53
PROVIDERS: Emergency Provider Emergency Medicine; PCP Internal Medicine Geriatric Medicine
DX: I10 Essential (primary) hypertension (principal); R05.9 Cough, unspecified; R07.9 Chest pain, unspecified
CPT/HCPCS: 36415; 71046; 80053; 83690; 84484; 85025; 85610; 85730; 93005; 99284; A9270